=== PATIENT | female | born 1990 | race African-American/Black ===

== ENCOUNTER 2018-07-03 22:05 | Inpatient (IN) ==
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
[2018-07-03 23:19] LABS: Baso % (Auto) 0.4 % (0.0-2.0); Hemoglobin 13.4 gm/dL (11.6-15.3); Lymph # (Auto) 1.3 th/mm3 (1.0-4.8); Lymph % (Auto) 19.1 % (9.0-44.0); Mean Corpuscular HGB Conc 33.4 % (32.0-36.0); Mean Corpuscular Hemoglobin 28.3 pg (27.0-34.0); Mean Corpuscular Volume 84.9 fL (80.0-100.0); Mono # (Auto) 0.6 th/mm3 (0.0-0.9); Mono % (Auto) 9.1 % (0.0-8.0); Neut # (Auto) 4.9 th/mm3 (1.8-7.7); Neut % (Auto) 71.4 % (16.0-70.0); Platelet Count 312 th/mm3 (150-450); Red Blood Count 4.71 mil/mm3 (4.00-5.30); Red Cell Distribution Width 15.3 % (11.6-17.2); White Blood Count 6.8 th/mm3 (4.0-11.0)
[2018-07-03 23:27] LABS: Amorphous Sediment,Urine Moderate /hpf; Bilirubin,Urine Negative (Negative); Clarity,Urine Turbid (Clear); Color,Urine Yellow (Yellw/Straw); Glucose,Urine (UA) Negative (Negative); Leukocyte Esterase,Urine Negative (Negative); Mucus,Urine Many /lpf (Occasional); Nitrite,Urine Negative (Negative); Specific Gravity,Urine 1.033 (1.002-1.035); Squamous Epithelial Cell,Urine 3 /hpf (0-5)
[2018-07-03 23:46] LABS: Alanine Aminotransferase 18 U/L (10-53); Albumin 4.6 g/dL (3.4-5.0); Anion Gap 12 meq/L (5-15); Aspartate Aminotransferase 21 U/L (15-37); Blood Urea Nitrogen 5 mg/dL (7-18); Calcium 9.6 mg/dL (8.5-10.1); Carbon Dioxide 20.1 meq/L (21.0-32.0); Chloride 108 meq/L (98-107); Glomerular Filtration Rate 80 mL/min (>89); Glucose,Random 106 mg/dL (74-106); Potassium 3.8 meq/L (3.5-5.1); Sodium 140 meq/L (136-145)
[2018-07-03 23:56] LABS: Alkaline Phosphatase 74 U/L (45-117); Creatine Kinase 227 U/L (26-192); Total Protein 8.7 g/dL (6.4-8.2)
[2018-07-04 00:09] LABS: CKMB Percent 0.4 % (0.0-4.0)
--- NOTE | 2018-07-04 00:30 | CT ---
EXAM DATE: 07/04/2018 12:15 AM EDT AGE/SEX: 28 years / Female INDICATIONS: Altered mental status. CLINICAL DATA: This is the patient's initial encounter. Patient reports that signs and symptoms have been present for 1 day and indicates a pain score of 0/10. MEDICAL/SURGICAL HISTORY: None. None. RADIATION DOSE: 56.35 CTDI (mGy) COMPARISON: No prior exams available for comparison. TECHNIQUE: CT of the head without contrast. Using automated exposure control and adjustment of the mA and/or kV according to patient size, radiation dose was kept as low as reasonably achievable to ob tain optimal diagnostic quality images. DICOM format image data is available electronically for revi ew and comparison. FINDINGS: Cerebrum: The ventricles are normal for age. No evidence of midline shift, mass lesion, hemorrhage or acute infarction. No extraaxial fluid collections are seen. Posterior Fossa: The cerebellum and brainstem are intact. The 4th ventricle is midline. The cerebe llopontine angle is unremarkable. Extracranial: The visualized portion of the orbits is intact. Skull: The calvaria is intact. No evidence of skull fracture. CONCLUSION: Negative noncontrasted CT examination. . Electronically signed by: Adeel Hahn MD 07/04/2018 12:29 AM EDT
[2018-07-04 00:34] LABS: Amphetamine Screen,Urine Neg (Neg); Barbiturate Screen,Urine Neg (Neg); Cannabinoid Screen,Urine Pos (Neg); Cocaine Screen,Urine Neg (Neg); Opiate Screen,Urine Neg (Neg)
--- NOTE | 2018-07-04 10:16 | ECG ---
Date Performed: 07/03/2018 Time Performed: 23:13:49 PTAGE: 28 years EKG: Sinus rhythm POSSIBLE RIGHT VENTRICULAR CONDUCTION DELAY BORDERLINE ECG NO PREVIOUS TRACING DOCTOR: Steve Peacock Interpretating Date/Time 07/04/2018 10:14:13
[2018-07-04] MEDS ORDERED: Aluminum/Magnesium/Simethacone Susp 30 ML UDC PO PRN (10:37)
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
[2018-07-04] MEDS ORDERED: Haloperidol 5 MG Tablet PO ONE (22:00)
[2018-07-05] MEDS ORDERED: Aluminum/Magnesium/Simethacone Susp 30 ML UDC PO PRN (12:45)
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
== END 2018-07-05 14:40 | disposition home or self-care (01) ==
LOC: NEPD 22:05 → NEDA 07-04 10:37 → NEPJ 07-04 10:48 → H270 07-04 10:58
PROVIDERS: ADMIT Psychiatry & Neurology Psychiatry; ATTEND Psychiatry & Neurology Psychiatry